=== PATIENT | male | born 2000 | race Caucasian/White ===

== ENCOUNTER 2020-06-27 19:52 | Inpatient (IN) ==
[2020-06-27 20:00] VITALS: O2SAT 99
--- NOTE | 2020-06-27 20:32 | Emergency Department Note ---
Impression & Plan Suicide attempt, Depression ED Provider Note NAME: KEYON ARELLANO AGE: 20 SEX: M : 2000 ARRIVES VIA: Walk-In INFORMANT: [Patient] ED PROVIDER(S): [Pete Cool MD] CHIEF COMPLAINT: Suicidality HISTORY OF PRESENT ILLNESS: The patient is a 20-year-old male who attempted to hang himself with a belt earlier today. The patient has been feeling depressed for months. He has a counselor/therapist. He has an appointment to see psychiatry next week. The patient is not sure why he feels so anxious and depressed. He admits to some stress from school but this is nothing new really. He is sleeping okay, he is eating okay. Today, he just felt overwhelmed. He attempted to hang himself with a belt in the doorway. He states he became lightheaded and almost lost c onsciousness but states that the attempt was unsuccessful. He contacted crisis because afterwards, he was scared. They told him to come to the hospital for evaluation. Patient has not had cough, cold or congestion. No current neck pain. He states that he has never tried to harm himself before. He does not think he needs to stay in the hospital as he no longer feels suicidal. REVIEW OF SYSTEMS: See HPI for pertinent positives and negatives. A total of ten systems were reviewed and were otherwise negative. PMHx/PSHx: See Below SOCIAL HISTORY: See Below. PHYSICAL EXAM: GENERAL: Patient is in no acute distress. HEENT: No acute trauma, normocephalic atraumatic, mucous membranes moist, no nasal congestion, no scleral icterus. NECK: No stridor, no adenopathy, no meningismus, trachea is midline. No tenderness to the trachea or hyoid bone. He does have an abrasion to the left superior trapezius muscle LUNGS: Clear to auscultation bilaterally, no wheeze, no rhonchi, breath sounds equal. HEART: Without murmurs gallops or rubs, regular rate and rhythm. ABDOMEN: Soft, nontender, bowel sounds positive, no hernias, no peritonitis. EXTREMITIES: No cyanosis or edema, full range of motion of all the joints without pain or difficulty, no signs for acute trauma. NEUROLOGIC: Oriented x 3, no acute motor or sensory deficits, no focal weakness. SKIN: No rash, no jaundice, no diaphoresis. Gastric: Cooperative, denies active suicidal ideation. Voluntary. Admits to a suicide attempt by hanging earlier. DIFFERENTIAL DIAGNOSIS: Mood disorder, infection, hypoglycemia, electrolyte abnormalities, cardiac sources, intracerebral event, toxicologic, trauma, neurologic, as well as other pathologies. EMERGENCY DEPARTMENT COURSE/PROCEDURES: MEDICAL DECISION MAKING: There is no leukocytosis or concerning anemia. There is a normal platelet count. No significant electrolyte abnormality or kidney failure. There is no concerning liver enzyme elevation. The patient appears to be in a euthyroid state. Urinalysis does not show infection. Urine tox was negative. Alcohol, Tylenol and aspirin levels were undetectable. Coronavirus testing was negative. The patient presents after trying to hang himself with a belt. He was in need of a hospital stay. He was voluntary. He was felt medically clear for a psychiatric evaluation. The patient was seen by psychiatry case management. A consult was placed to our 3 S. psychiatric unit. The patient was accepted to this floor. Patient was cooperative during his stay here in the ED. Past Med/Surg History Medical History Depression Social History Smoking Status: Never smoker Preferred Language: Bengali Communication Ability: Effective Beliefs That Will Affect Care: None Feels Safe at Home: Yes Assistive Devices: None Allergies Allergies Allergy/AdvReac Type Severity Reaction Status Date / Time lactose Allergy Diarrhea Verified 06/27/20 22:02 Home Meds Home Medications Medication Instructions Recorded Confirmed fluticasone propionate [Flonase] 1 spray INTRANASAL DAILY 06/27/20 06/27/20 Results & Data (ED) Vital Signs Vital Signs - 24 hr 06/27/20 19:54 06/27/20 21:44 Temperature 36.9 C Temperature Source Oral Pulse Rate 100 H Pulse Rate [Finger] 94 H Pulse Rhythm Regular Pulse Strength Normal Respiratory Rate 20 18 Respiratory Effort / Characteristics Non-Labored Spontaneous Non-Labored Spontaneous Respiratory Depth Normal Normal Respiratory Pattern Regular Blood Pressure 147/87 H Blood Pressure [Right Arm] 147/84 H Blood Pressure Mean 107 Blood Pressure Mean [Right Arm] 105 Blood Pressure Position Sitting Pulse Oximetry 99 99 Oxygen Delivery Method Room Air Room Air Sepsis Recent Fever Within 48 Hours No Sepsis New/Unexplained Change in Mental Status N/A Sepsis Action Taken by Nursing No Action Required Home Medications Current Medication List: was personally reviewed by me Laboratory Data Attestation: I reviewed the patient's lab results. Result diagrams: 06/27/20 20:31 06/27/20 20:31 Lab Results 06/27/20 06/27/20 06/27/20 Range/Units 20:00 20:00 20:31 WBC 7.30 (4.8-10.8) K/uL RBC 5.06 (4.7-6.1) M/uL Hgb 14.7 (14.0-18.0) g/dL Hct 43.6 (42-52) % MCV 86.2 (80-100) fL MCH 29.1 (25-34) pg MCHC 33.7 (32-36) g/dL RDW Std Deviation 42.0 (36.4-46.3) fL RDW Coeff of Devorah 13.3 (11.5-14.5) % Plt Count 301 (130-400) K/uL MPV 8.8 (7.4-10.4) fL Immature Gran % (Auto) 0.1 % Neut % (Auto) 64.4 % Lymph % (Auto) 27.7 % Branch % (Auto) 6.2 % Eos % (Auto) 1.5 % Baso % (Auto) 0.1 % Neut # (Auto) 4.70 (1.4-6.5) K/uL Lymph # (Auto) 2.02 (1.2-3.4) K/uL Branch # (Auto) 0.45 (0.11-0.59) K/uL Eos # (Auto) 0.11 (0-0.5) K/uL Baso # (Auto) 0.01 (0-0.2) K/uL Immature Gran # (Auto) 0.01 (0.00-0.02) K/uL Sodium (136-145) mmol/L Potassium (3.5-5.1) mmol/L Chloride (98-107) mmol/L Carbon Dioxide (21-32) mmol/L Anion Gap (3-11) BUN (7-18) mg/dl Creatinine (0.6-1.4) mg/dl Est Cr Clr Drug Dosing ml/min Est GFR ( Amer) Est GFR (Non-Af Amer) BUN/Creatinine Ratio (10-20) Glucose (70-99) mg/dl Calcium (8.5-10.1) mg/dl Total Bilirubin (0.2-1) mg/dl AST (15-37) U/L ALT (12-78) U/L Alkaline Phosphatase (45-117) U/L Total Protein (6.4-8.2) gm/dl Albumin (3.4-5.0) gm/dl Globulin (2.5-4.0) gm/dl Albumin/Globulin Ratio (0.9-2) TSH (0.300-4.500) uIu/ml Urine Color Yellow Urine Appearance Clear (Clear) Urine pH 7.0 (4.5-7.5) Ur Specific [place] 1.009 (1.000-1.030) Urine Protein Negative (Negative) Urine Glucose (UA) Negative (Negative) Urine Ketones Negative (Negative) Urine Blood Negative (Negative) Urine Nitrite Negative (Negative) Urine Bilirubin Negative (Negative) Urine Urobilinogen Negative (Negative) Ur Leukocyte Esterase Negative (Negative) Salicylates (2.8-20) mg/dl Urine Opiates Screen Neg (Neg) Ur Methadone, Qual Neg (Neg) Acetaminophen (10-30) ug/ml Urine Barbiturates Neg (Neg) Ur Phencyclidine (PCP) Neg (Neg) U Amphetamin/Meth Scrn Neg (Neg) MDMA (Ecstasy) Screen Neg (Neg) U Benzodiazepines Scrn Neg (Neg) Ur Cocaine Metabolite Neg (Neg) U Marijuana (THC) Screen Neg (Neg) Ethyl Alcohol mg/dL (0-3) mg/dl COVID-19 Eval Order SARS-CoV-2, RNA, NAAT (NEGATIVE) 06/27/20 06/27/20 06/27/20 Range/Units 20:31 20:31 20:31 WBC (4.8-10.8) K/uL RBC (4.7-6.1) M/uL Hgb (14.0-18.0) g/dL Hct (42-52) % MCV (80-100) fL MCH (25-34) pg MCHC (32-36) g/dL RDW Std Deviation (36.4-46.3) fL RDW Coeff of Devorah (11.5-14.5) % Plt Count (130-400) K/uL MPV (7.4-10.4) fL Immature Gran % (Auto) % Neut % (Auto) % Lymph % (Auto) % Branch % (Auto) % Eos % (Auto) % Baso % (Auto) % Neut # (Auto) (1.4-6.5) K/uL Lymph # (Auto) (1.2-3.4) K/uL Branch # (Auto) (0.11-0.59) K/uL Eos # (Auto) (0-0.5) K/uL Baso # (Auto) (0-0.2) K/uL Immature Gran # (Auto) (0.00-0.02) K/uL Sodium 139 (136-145) mmol/L Potassium 3.7 (3.5-5.1) mmol/L Chloride 109 H (98-107) mmol/L Carbon Dioxide 25 (21-32) mmol/L Anion Gap 5.0 (3-11) BUN 13 (7-18) mg/dl Creatinine 0.85 (0.6-1.4) mg/dl Est Cr Clr Drug Dosing 133.0 ml/min Est GFR ( Amer) 144.4 Est GFR (Non-Af Amer) 124.6 BUN/Creatinine Ratio 15.0 (10-20) Glucose 99 (70-99) mg/dl Calcium 9.8 (8.5-10.1) mg/dl Total Bilirubin 0.5 (0.2-1) mg/dl AST 17 (15-37) U/L ALT 29 (12-78) U/L Alkaline Phosphatase 92 (45-117) U/L Total Protein 8.6 H (6.4-8.2) gm/dl Albumin 4.4 (3.4-5.0) gm/dl Globulin 4.2 H (2.5-4.0) gm/dl Albumin/Globulin Ratio 1.1 (0.9-2) TSH 1.120 (0.300-4.500) uIu/ml Urine Color Urine Appearance (Clear) Urine pH (4.5-7.5) Ur Specific [place] (1.000-1.030) Urine Protein (Negative) Urine Glucose (UA) (Negative) Urine Ketones (Negative) Urine Blood (Negative) Urine Nitrite (Negative) Urine Bilirubin (Negative) Urine Urobilinogen (Negative) Ur Leukocyte Esterase (Negative) Salicylates < 1.7 L (2.8-20) mg/dl Urine Opiates Screen (Neg) Ur Methadone, Qual (Neg) Acetaminophen < 2 L (10-30) ug/ml Urine Barbiturates (Neg) Ur Phencyclidine (PCP) (Neg) U Amphetamin/Meth Scrn (Neg) MDMA (Ecstasy) Screen (Neg) U Benzodiazepines Scrn (Neg) Ur Cocaine Metabolite (Neg) U Marijuana (THC) Screen (Neg) Ethyl Alcohol mg/dL < 3.0 (0-3) mg/dl COVID-19 Eval Order SARS-CoV-2, RNA, NAAT (NEGATIVE) 06/27/20 06/27/20 Range/Units 20:59 20:59 WBC (4.8-10.8) K/uL RBC (4.7-6.1) M/uL Hgb (14.0-18.0) g/dL Hct (42-52) % MCV (80-100) fL MCH (25-34) pg MCHC (32-36) g/dL RDW Std Deviation (36.4-46.3) fL RDW Coeff of Devorah (11.5-14.5) % Plt Count (130-400) K/uL MPV (7.4-10.4) fL Immature Gran % (Auto) % Neut % (Auto) % Lymph % (Auto) % Branch % (Auto) % Eos % (Auto) % Baso % (Auto) % Neut # (Auto) (1.4-6.5) K/uL Lymph # (Auto) (1.2-3.4) K/uL Branch # (Auto) (0.11-0.59) K/uL Eos # (Auto) (0-0.5) K/uL Baso # (Auto) (0-0.2) K/uL Immature Gran # (Auto) (0.00-0.02) K/uL Sodium (136-145) mmol/L Potassium (3.5-5.1) mmol/L Chloride (98-107) mmol/L Carbon Dioxide (21-32) mmol/L Anion Gap (3-11) BUN (7-18) mg/dl Creatinine (0.6-1.4) mg/dl Est Cr Clr Drug Dosing ml/min Est GFR ( Amer) Est GFR (Non-Af Amer) BUN/Creatinine Ratio (10-20) Glucose (70-99) mg/dl Calcium (8.5-10.1) mg/dl Total Bilirubin (0.2-1) mg/dl AST (15-37) U/L ALT (12-78) U/L Alkaline Phosphatase (45-117) U/L Total Protein (6.4-8.2) gm/dl Albumin (3.4-5.0) gm/dl Globulin (2.5-4.0) gm/dl Albumin/Globulin Ratio (0.9-2) TSH (0.300-4.500) uIu/ml Urine Color Urine Appearance (Clear) Urine pH (4.5-7.5) Ur Specific [place] (1.000-1.030) Urine Protein (Negative) Urine Glucose (UA) (Negative) Urine Ketones (Negative) Urine Blood (Negative) Urine Nitrite (Negative) Urine Bilirubin (Negative) Urine Urobilinogen (Negative) Ur Leukocyte Esterase (Negative) Salicylates (2.8-20) mg/dl Urine Opiates Screen (Neg) Ur Methadone, Qual (Neg) Acetaminophen (10-30) ug/ml Urine Barbiturates (Neg) Ur Phencyclidine (PCP) (Neg) U Amphetamin/Meth Scrn (Neg) MDMA (Ecstasy) Screen (Neg) U Benzodiazepines Scrn (Neg) Ur Cocaine Metabolite (Neg) U Marijuana (THC) Screen (Neg) Ethyl Alcohol mg/dL (0-3) mg/dl COVID-19 Eval [facility], NAAT NEGATIVE (NEGATIVE) Discharge Plan Visit Data Chief Complaint: Mental Health Evaluation Stated Complaint: [facility] ED Provider: Pete Cool Discharge Problem: Suicide attempt, Depression Patient Disposition: Admitted As Inpatient Condition: Good Discharge Instructions Interventions: ED Discharge Assessment Last Done: 06/27/20 23:04 Discharge Problem: Depression Qualifiers: Depression Type: unspecified Qualified Code(s): F32.9 - Major depressive disorder, single episode, unspecified
[2020-06-27 20:47] LABS: Basophils # (auto) 0.01 K/uL (0-0.2); Basophils % (auto) 0.1 %; Eosinophils # (auto) 0.11 K/uL (0-0.5); Eosinophils % (auto) 1.5 %; Hematocrit (blood only) 43.6 % (42-52); Hemoglobin 14.7 g/dL (14.0-18.0); Immature Granulocytes # (auto) 0.01 K/uL (0.00-0.02); Immature Granulocytes % (auto) 0.1 %; Lymphocytes # (auto) 2.02 K/uL (1.2-3.4); Lymphocytes % (auto) 27.7 %; Mean Corpuscular Hemoglobin 29.1 pg (25-34); Mean Corpuscular Hgb Conc 33.7 g/dL (32-36); Mean Corpuscular Volume 86.2 fL (80-100); Mean Platelet Volume 8.8 fL (7.4-10.4); Monocytes # (auto) 0.45 K/uL (0.11-0.59); Monocytes % (auto) 6.2 %; Neutrophils % (auto) 64.4 %; Platelet Count 301 K/uL (130-400); RDW Coefficient of Variation 13.3 % (11.5-14.5); Red Blood Count 5.06 M/uL (4.7-6.1)
[2020-06-27 21:06] LABS: Albumin Level 4.4 gm/dl (3.4-5.0); Calcium 9.8 mg/dl (8.5-10.1); Est GFR (African American) 144.4; Est GFR (Non-African American) 124.6; Potassium 3.7 mmol/L (3.5-5.1)
[2020-06-27 21:14] LABS: Appearance Urine Clear (Clear); Bilirubin Urine Negative (Negative); Blood Urine Negative (Negative); Color Urine Yellow; Glucose Urine UA Negative (Negative); Ketones Urine Negative (Negative); Leukocyte Esterase Urine Negative (Negative); Nitrite Urine Negative (Negative); Protein Urine Negative (Negative); Specific Gravity Urine 1.009 (1.000-1.030); Urobilinogen Urine Negative (Negative)
[2020-06-27 21:17] LABS: Albumin Globulin Ratio 1.1 (0.9-2); Bilirubin,Total 0.5 mg/dl (0.2-1); Globulin 4.2 gm/dl (2.5-4.0); Thyroid Stimulating Hormone 1.12 uIu/ml (0.300-4.500); Total Protein 8.6 gm/dl (6.4-8.2)
[2020-06-27 21:25] LABS: Acetaminophen < 2 ug/ml (10-30); Salicylate < 1.7 mg/dl (2.8-20)
[2020-06-27 21:34] LABS: Amphetamines+Metham, Urine Neg (Neg); Barbiturates, Urine Neg (Neg); Benzodiazepine, Urine Neg (Neg); Cocaine, Urine Neg (Neg); MDMA (Ecstacy), Urine Neg (Neg); Methadone, Urine Neg (Neg); Opiate, Urine Neg (Neg); Phencyclidine, Urine Neg (Neg)
[2020-06-27] MEDS ORDERED: ALUMINUM/MAGNESIUM SUSP 30 ML UDC PO PRN (23:51)
[2020-06-27] MEDS ORDERED: BISMUTH SUBSALICYLATE LIQD 236 ML PO PRN (23:51)
[2020-06-27] MEDS ORDERED: hydrOXYzine HCl 25 MG TAB PO PRN ×2 (23:51)
[2020-06-27] MEDS ORDERED: MAGNESIUM HYDROXIDE SUSP 30 ML UDC PO PRN (23:51)
[2020-06-27] MEDS ORDERED: SODIUM CHLORIDE 0.65% NA SOLN 45 ML (OCEAN) PRN (23:51)
[2020-06-27] MEDS ORDERED: ACETAMINOPHEN 325 MG TAB PO PRN (23:51)
[2020-06-28] MEDS ORDERED: ESCITALOPRAM OXALATE 10 MG TAB PO ONE (10:59)
[2020-06-28] MEDS: busPIRone 5 MG TAB PO SCH ×2 (14:12→21:43)
--- NOTE | 2020-06-28 15:00 | History & Physical ---
Date of Service June 28, 2020 Impression / Recommendations Impression Pleasant 20-year-old gentleman describes a history of anxiety and depression dating back to teenage years. Previously responded positively to Lexapro and clonazepam treatment but has lapsed in medication management. Presented with impulsive self injury but reports quick resolution of suicidal ideation now describing this as a mistake and glad to be alive. Diagnosis: MDD, recurrent, severe, without psychosis; generalized anxiety disorder (1) Suicide attempt: 06/28 -Patient was admitted on a voluntary status to the behavioral health unit where his safety will be monitored on suicide precautions and he will participate in therapeutic programming as appropriate -Patient reporting resolution of suicidal impulse at time of admission (2) Depression: 06/28 -Depression sounds recurrent since teenage years -Start Lexapro 5 mg p.o. today and increased to 10 mg tomorrow for depression., Risks and benefits as well as alternatives agents were discussed. This agent was chosen based on previous good tolerability and positive treatment response to Lexapro Depression Type: unspecified Qualified Code(s): F32.9 - Major depressive disorder, single episode, unspecified (3) Generalized anxiety disorder: 06/28 -Longstanding anxiety and history of maladaptive coping strategies such as self injury injury via cutting. began to explore role of perfectionistic drives. -Start Lexapro as above -We will also start BuSpar 5 mg p.o. 3 times daily for more acute acting anxiolysis as treatment effect from SSRI may be delayed Inventory Assets Strengths: Help seeking. Intelligent Needs: Provision for safety. Pharmacotherapy Risk Factors Assessment Male: Yes : Yes Do You Have Access To A Gun?: No Health Problems: No Mental Health Diagnoses: Yes Substance Use Disorders: No Previous Attempt: No Family History of Suicide: No Previous Psychiatric Hospitalization: No Hopelessness: No Smoker: No Protective Factors Assessment : No Responsible for Young Children: No Employed: No Supportive Family: Yes Psychiatric History Identifying Data KEYON ARELLANO is a 20-year-old M who currently lives in [place], has a history of depression, anxiety, and self cutting, and was admitted on 06/27/20 22:21 on a 201 voluntary commitment for suicide attempt. Chief Complaint "I am shocked. I never thought I would do something like that ". History of Present Illness Patient was admitted through the [facility] ER yesterday after self presenting status post suicide attempt via self pain with a belt at his apartment. Per ER note, patient has been feeling depressed for several months. Has participated in some counseling. Indicated uncertain why he was feeling so depressed and anxious but noted stress from school but not new. Reported adequate sleep and appetite. Stated today he just felt overwhelmed and attempted to hang himself with a belt on the doorway, became lightheaded, nearly lost consciousness, contacted crisis services and was directed to present to the nearest ER which she did. He denied prior suicide attempts. He stated initially that he did not feel that he needed to stay in the hospital because he was no longer feeling suicidal. Medical work-up was negative and he was medically cleared for psychiatric inpatient admission. Urine tox was negative. Patient was ultimately willing for voluntary admission. On interview today, patient indicates that he is always been an anxious person. He describes a history of some perfectionism but not overt OCD. Tends to be hard onl himself. States that he felt more overwhelmed than usual in attending to his academic responsibilities. He describes a history of feeling emotionally overwhelmed at times in the past that have resulted in self injury in the form of cutting as an escape. First began cutting in 2012 but was able to stop and cutting resurfaced again in 2018 and got "pretty bad" cutting with a razor but never to the point of requiring medical intervention and denies that he is ever tried to take his life in the past. He reports he has had depression and anxiety since the age of 12. Historically emotionally can decompensate quickly. Describes recent decline in energy, crying spells, thoughts of life not being worth living. Denies changes in appetite. Denies s/o collin or psychosis. Reports previously treated with lexapro and possibly klonopin prn with good effect in [id number] however he lapsed in follow-up and ultimately ran out of medication which was not an immediate concern to him as he continued to feel well for some time. Past Psychiatric History Previous Psych History: Treated by psychiatrist, Bro Moreno in [id number]. Current Psychiatric Diagnosis: Reports prior diagnosis of MDD and OLINDA Outpatient Services: Seeing a [facility], Mandy, [facility] 2020 Previously was seen by therapist at [facility] Previous Psych Admissions: Denies Do You Have Access To A Gun?: No History of Previous Suicide Attempt: No Describe Attempts in the Past: Attempted to hang self today with a belt from door frame Past Medication Trials: Lexapro -believes was helpful and well-tolerated Clonazepam -believes was helpful on as needed basis Possible mood stabilizing agent. Unable to recall name Past Head Trauma/Neuro History History of Concussion/Seizure: No Allergies Allergy/AdvReac Type Severity Reaction Status Date / Time lactose Allergy Diarrhea Verified 06/27/20 22:02 Home Medications Home Medications Medication Instructions Recorded Confirmed Type fluticasone propionate [Flonase] 1 spray INTRANASAL DAILY 06/27/20 06/27/20 History Family History Family History of: Depression and Anxiety Alcohol History Hx of Alcohol Use Over the Past 12 Months: Yes (Socially, 1x weekly. Unable to recall the last time he was intoxicated.) AUDIT Total Score: 2 Smoking Use Smoking Status: Never smoker Substance History Hx of Prescription Med Misuse Over the Past 12 Months: No Hx of Over the Counter Med Misuse Over the Past 12 Months: No Hx of Inhalent Misuse Over the Past 12 Months: No Hx of Organic Substance Use Over the Past 12 Months: No Hx of Illegal Substances/Street Drug Use Over Past 12 Months: No Problems as a Result of Past Substance Use: None Identified Personal History Living Arrangements: Apartment Born In: [place], [place] Childhood: "good" Highest Grade Completed: College Highest 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 Marital Status: Single Number Of Children: 0 Beliefs That Will Affect Care: None Current Legal Problems: No Hx Legal Problems: No Hx Traumatic Life Events: No Psychological Trauma History Comment: Denies abuse history Patient History Medical History (Updated 06/28/20 @ 15:19 by Mathew Vail MD) Depression Environmental allergies Generalized anxiety disorder Social History Smoking Status: Never smoker Preferred Language: Divehi Communication Ability: Effective Beliefs That Will Affect Care: None Feels Safe at Home: Yes Assistive Devices: None Review of Systems Review of Systems: All systems reviewed & are unremarkable except as noted in HPI & below Neurologic: + headache(s) (improving) Physical Exam Psychiatric: Orientation: alert, oriented x 3 and cooperative Apperance: appropriately dressed, appropriately groomed and appeared stated age Eye Con tact: good eye contact Motor Behavior: steady gait and station and no abnormal motor movements Speech: normal rate/rhythm/volume of speech Affect: + depressed affect, + anxious affect and mood congruent with affect Mood: + depressed mood and + anxious mood Thought Process: goal directed thought process Thought Content: reality based without delusions Suicidal Thoughts: denies suicidal thoughts (Admits to suicide attempt via hanging but denies continued suicidal ideation following admission), denies suicidal plan and denies suicidal intent Homicidal Thoughts: denies homicidal thoughts, denies homicidal plan and denies homicidal intent Hallucinations: no auditory hallucinations, no visual hallucinations and no tactile hallucinations Cognition: recent memory grossly intact, remote memory grossly intact and language grossly intact Estimated Intelligence: average estimated intelligen ce Insight: + fair insight Judgement: + fair judgement Vital Signs (Past 24 Hours): Last Vital Signs Temp 36.8 C 06/28/20 06:45 Pulse 88 06/28/20 06:46 Resp 16 06/28/20 06:45 BP 128/87 06/28/20 06:46 Pulse Ox 99 06/27/20 21:44 Exam Statement: Physical exam performed in the ER on 06/27/2020 reviewed and accepted for medical clearance for behavioral health admission. Results & Data ([facility]) Laboratory Results Laboratory Results - last 24 hr 06/27/20 06/27/20 06/27/20 20:00 20:00 20:31 WBC 7.30 RBC 5.06 Hgb 14.7 Hct 43.6 MCV 86.2 MCH 29.1 MCHC 33.7 RDW Std Deviation 42.0 RDW Coeff of Devorah 13.3 Plt Count 301 MPV 8.8 Immature Gran % (Auto) 0.1 Neut % (Auto) 64.4 Lymph % (Auto) 27.7 Desha % (Auto) 6.2 Eos % (Auto) 1.5 Baso % (Auto) 0.1 Neut # (Auto) 4.70 Lymph # (Auto) 2.02 Desha # (Auto) 0.45 Eos # (Auto) 0.11 Baso # (Auto) 0.01 Immature Gran # (Auto) 0.01 Sodium Potassium Chloride Carbon Dioxide Anion Gap BUN Creatinine Est Cr Clr Drug Dosing Est GFR ( Amer) Est GFR (Non-Af Amer) BUN/Creatinine Ratio Glucose Calcium Total Bilirubin AST ALT Alkaline Phosphatase Total Protein Albumin Globulin Albumin/Globulin Ratio TSH Urine Color Yellow Urine Appearance Clear Urine pH 7.0 Ur Specific Milton 1.009 Urine Protein Negative Urine Glucose (UA) Negative Urine Ketones Negative Urine Blood Negative Urine Nitrite Negative Urine Bilirubin Negative Urine Urobilinogen Negative Ur Leukocyte Esterase Negative Salicylates Urine Opiates Screen Neg Ur Methadone, Qual Neg Acetaminophen Urine Barbiturates Neg Ur Phencyclidine (PCP) Neg U Amphetamin/Meth Scrn Neg MDMA (Ecstasy) Screen Neg U Benzodiazepines Scrn Neg Ur Cocaine Metabolite Neg U Marijuana (THC) Screen Neg Ethyl Alcohol mg/dL COVID-19 Eval Order SARS-CoV-2, RNA, NAAT 06/27/20 06/27/20 06/27/20 20:31 20:31 20:31 WBC RBC Hgb Hct MCV MCH MCHC RDW Std Deviation RDW Coeff of Devorah Plt Count MPV Immature Gran % (Auto) Neut % (Auto) Lymph % (Auto) Desha % (Auto) Eos % (Auto) Baso % (Auto) Neut # (Auto) Lymph # (Auto) Desha # (Auto) Eos # (Auto) Baso # (Auto) Immature Gran # (Auto) Sodium 139 Potassium 3.7 Chloride 109 H Carbon Dioxide 25 Anion Gap 5.0 BUN 13 Creatinine 0.85 Est Cr Clr Drug Dosing 133.0 Est GFR ( Amer) 144.4 Est GFR (Non-Af Amer) 124.6 BUN/Creatinine Ratio 15.0 Glucose 99 Calcium 9.8 Total Bilirubin 0.5 AST 17 ALT 29 Alkaline Phosphatase 92 Total Protein 8.6 H Albumin 4.4 Globulin 4.2 H Albumin/Globulin Ratio 1.1 TSH 1.120 Urine Color Urine Appearance Urine pH Ur Specific Milton Urine Protein Urine Glucose (UA) Urine Ketones Urine Blood Urine Nitrite Urine Bilirubin Urine Urobilinogen Ur Leukocyte Esterase Salicylates < 1.7 L Urine Opiates Screen Ur Methadone, Qual Acetaminophen < 2 L Urine Barbiturates Ur Phencyclidine (PCP) U Amphetamin/Meth Scrn MDMA (Ecstasy) Screen U Benzodiazepines Scrn Ur Cocaine Metabolite U Marijuana (THC) Screen Ethyl Alcohol mg/dL < 3.0 COVID-19 Eval Order SARS-CoV-2, RNA, NAAT 06/27/20 06/27/20 20:59 20:59 WBC RBC Hgb Hct MCV MCH MCHC RDW Std Deviation RDW Coeff of Devorah Plt Count MPV Immature Gran % (Auto) Neut % (Auto) Lymph % (Auto) Desha % (Auto) Eos % (Auto) Baso % (Auto) Neut # (Auto) Lymph # (Auto) Desha # (Auto) Eos # (Auto) Baso # (Auto) Immature Gran # (Auto) Sodium Potassium Chloride Carbon Dioxide Anion Gap BUN Creatinine Est Cr Clr Drug Dosing Est GFR ( Amer) Est GFR (Non-Af Amer) BUN/Creatinine Ratio Glucose Calcium Total Bilirubin AST ALT Alkaline Phosphatase Total Protein Albumin Globulin Albumin/Globulin Ratio TSH Urine Color Urine Appearance Urine pH Ur Specific Milton Urine Protein Urine Glucose (UA) Urine Ketones Urine Blood Urine Nitrite Urine Bilirubin Urine Urobilinogen Ur Leukocyte Esterase Salicylates Urine Opiates Screen Ur Methadone, Qual Acetaminophen Urine Barbiturates Ur Phencyclidine (PCP) U Amphetamin/Meth Scrn MDMA (Ecstasy) Screen U Benzodiazepines Scrn Ur Cocaine Metabolite U Marijuana (THC) Screen Ethyl Alcohol mg/dL COVID[facility]19 [facility] SARS-CoV-2, RNA, NAAT NEGATIVE Current Inpatient Medications Current Inpatient Medications: Current Inpatient Medications Acetaminophen (Acetaminophen 325 Mg Tab) 650 mg PO Q4H PRN PRN Reason: Headache or Minor Fever Stop: 07/27/20 23:50 Al Hydrox/Mg Hydrox/Simethicone (Aluminum/Magnesium Susp 30 Ml Udc) 30 ml PO Q4H PRN PRN Reason: GI Upset Stop: 07/27/20 23:50 Bismuth Subsalicylate (Bismuth Subsalicylate Liqd 236 Ml) 15 ml PO PRN PRN PRN Reason: Loose Stool Stop: 07/27/20 23:50 Hydroxyzine HCl (Hydroxyzine Hcl 25 Mg Tab) 50 mg PO HSZ PRN PRN Reason: Insomnia Stop: 07/27/20 23:50 Hydroxyzine HCl (Hydroxyzine Hcl 25 Mg Tab) 25 mg PO Q4H PRN PRN Reason: Anxiety Stop: 07/27/20 23:50 Magnesium Hydroxide (Magnesium Hydroxide Susp 30 Ml Udc) 30 ml PO DAILY PRN PRN Reason: Constipation Stop: 07/27/20 23:50 Sodium Chloride (Sodium Chloride 0.65% Na Soln 45 Ml ([place])) 1 - 2 sprays NA PRN PRN PRN Reason: Nasal Dryness/Congestion Stop: 07/27/20 23:50
[2020-06-29] MEDS: busPIRone 5 MG TAB PO SCH ×3 (08:53→21:53)
[2020-06-29] MEDS: FLUTICASONE PROPIONATE NA SPR 16 GM BTL SCH (08:54)
[2020-06-29] MEDS: ESCITALOPRAM OXALATE 10 MG TAB PO SCH (08:54)
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
[2020-06-29] MEDS: ACETAMINOPHEN 325 MG TAB PO SCH ×2 (12:44→17:10)
[2020-06-29] MEDS: IBUPROFEN 600 MG TAB PO SCH ×2 (14:10→21:50)
[2020-06-30] MEDS: IBUPROFEN 600 MG TAB PO SCH ×4 (02:44→21:07)
[2020-06-30] MEDS: ACETAMINOPHEN 325 MG TAB PO SCH ×4 (06:22→23:10)
--- NOTE | 2020-06-30 08:32 | Psychiatric Progress Note ---
Date of Service June 30, 2020 Impression / Recommendations Impression 20-year-old male describes a history of anxiety and depression dating back to teenage years. Previously responded positively to Lexapro and clonazepam treatment but has lapsed in medication management. Presented with impulsive self injury but reports quick resolution of suicidal ideation now describing this as a mistake and glad to be alive. He was resumed on Lexapro with addition of BuSpar to target anxiety more directly. He is engaging and participating in group and recreational programming, and will have a family meeting with parents tomorrow to discuss discharge and safety planning prior to discharge. .Diagnosis: MDD, recurrent, severe, without psychosis; generalized anxiety disorder. (1) Suicide attempt: 06/28 -Patient was admitted on a voluntary status to the behavioral health unit where his safety will be monitored on suicide precautions and he will participate in therapeutic programming as appropriate -Patient reporting resolution of suicidal impulse at time of admission 06/29 - Pt is denying continued suicidal ideation. Ongoing discussion regarding recommendations for appropriate outpatient support and safety planning - Pt has been reporting a generalized headache, which he states has been persistent but somewhat improved since he first presented to the ED. No obvious deformity observed, no cervical tenderness, some tenderness to anterior neck. Pt reported improvement with a dose of Tylenol last evening. Discussed initially plan of treating pain and inflammation with scheduled alternating Tylenol and Ibuprofen. Reviewed symptoms of significant concern (acute exacerbation of pain, numbness/tingling of upper extremities, dizziness, vision changes, etc.), and encouraged patient to come to staff with any acute concerns. 06/30 -Family meeting scheduled with parents for tomorrow. Continue to work on safety plan. (2) Depression: 06/28 -Depression sounds recurrent since teenage years -Start Lexapro 5 mg p.o. today and increased to 10 mg tomorrow for depression., Risks and benefits as well as alternatives agents were discussed. This agent was chosen based on previous good tolerability and positive treatment response to Lexapro 06/29 - Continue current dosage of Lexapro 10mg. Pt believes he had previously been prescribed 20mg, but wishes to continue his current dose for an extended period - with likely evaluation for need for adjustments completed with his outpatient provider - Pt encouraged to continue participation with regard to group and recreational programming - Was encouraged to consider scheduling a family meeting with parents to discuss discharge and safety planning 06/30 -Continue current medications, referring for psychiatric care in [place], [place] (will see [facility] in the interim). (3) Generalized anxiety disorder: 06/28 -Longstanding anxiety and history of maladaptive coping strategies such as self injury injury via cutting. Began to explore role of perfectionistic drives. -Start Lexapro as above -We will also start BuSpar 5 mg p.o. 3 times daily for more acute acting anxiolysis as treatment effect from SSRI may be delayed. 06/29 - Pt reports initial mildly favorable response to additional of buspirone to his medication regimen. Pt reports feeling as though he would benefit from an increased dose, so will titrate to 10mg TID starting with this afternoon's dose. - Continue current dosage of Lexapro 10mg - Encourage participation in group and recreational programming 06/30 -Continue current medications, work on healthy coping skills and behavioral techniques for managing anxiety. Inventory Assets Strengths: Help seeking. Intelligent Needs: Provision for safety. Pharmacotherapy Risk Factors Assessment Male: Yes : Yes Do You Have Access To A Gun?: No Health Problems: No Mental Health Diagnoses: Yes Substance Use Disorders: No Previous Attempt: No Family History of Suicide: No Previous Psychiatric Hospitalization: No Hopelessness: No Smoker: No Protective Factors Assessment : No Responsible for Young Children: No Employed: No Supportive Family: Yes Interval History Identifying Information KEYON ARELLANO is a 20-year-old M who currently lives in [place], [place] with a friend, has a history of depression, anxiety, and self cutting, and was admitted on 06/27/20 22:21 on a 201 voluntary commitment for suicide attempt. Chief Complaint "Uh, I think I've been doing good". Review of Systems Sleep Information Total Hours of Sleep: 6.5 Sleep Comments: pt on q-15 minute checks Meal Information Percent Meal Consumed - Breakfast: 100 Percent Meal Consumed - Lunch: 100 Percent Meal Consumed - Dinner: 100 Subjective Subjective Patient was seen & assessed and interval progress reviewed with nursing and social work. Staff report he is attending groups but with minimal participation, rated mood 8-8.5/10, and is eating well. He has a family meeting with his mother and the social work job titles tomorrow. On my assessment, he reports symptoms are improving, especially anxiety, as he feels less panicky and tense, less tremulous and more relaxed. Still feels "a little out of it, not able to focus, racing thoughts, and tired." Has felt "foggy" for the past couple months. Sleep is fair, difficulty falling asleep, but once he falls asleep, he sleeps through the night. Feels "worried, alone with my thoughts" when trying to fall asleep. Sleep latency is 15 min - 1.5 hours. He has talked about sleep hygiene with his therapist, and has been working on getting a set schedule, usually showers prior to bed to help relax him, but is still using his phone just before bed. He denies SI and is working on his safety plan. He is worried about school and what he will tell his friends about "why I disappeared," as well as how he will deal with stressors when he's discharged. Reviewed his thoughts of how much to tell friends who ask where he's been. Discussed his family meeting with parents tomorrow, is anxious because he doens't know "what to expect." Spent some time discussing this, goals of meeting. States they talk daily, parents are very supportive, but he's never been very open about his struggles. Processed his underlying fear of burdening others if he discloses his problems. He asked multiple questions about medications, including effects of alcohol when on medication. Physical Exam Psychiatric Orientation: alert and cooperative Apperance: appropriately dressed, appropriately groomed and appeared stated age Eye Contact: good eye contact Motor Behavior: steady gait and station and + psychomotor agitation (bouncing leg up and down throughout interview) Speech: normal rate/rhythm/volume of speech Affect: + anxious affect Mood: + anxious mood Thought Process: goal directed thought process Thought Content: reality based without delusions Suicidal Thoughts: denies suicidal thoughts Homicidal Thoughts: denies homicidal thoughts Hallucinations: no auditory hallucinations Cognition: recent memory grossly intact, attention grossly intact and language grossly intact Estimated Intelligence: consistent with education level Insight: good insight Judgement: good judgement Vital Signs (Past 24 Hours) Last Vital Signs Temp 36.6 C 06/30/20 06:45 Pulse 89 06/30/20 06:46 Resp 16 06/30/20 06:45 BP 105/69 06/30/20 06:46 Pulse Ox 99 06/27/20 21:44 Results & Data ([facility]) Current Inpatient Medications Current Inpatient Medications: Current Inpatient Medications Acetaminophen (Acetaminophen 325 Mg Tab) 650 mg PO Q6H BERNARDO Stop: 07/29/20 10:59 Last Admin: 06/30/20 06:22 Dose: Not Given Documented by: Al Hydrox/Mg Hydrox/Simethicone (Aluminum/Magnesium Susp 30 Ml Udc) 30 ml PO Q4H PRN PRN Reason: GI Upset Stop: 07/27/20 23:50 Bismuth Subsalicylate (Bismuth Subsalicylate Liqd 236 Ml) 15 ml PO PRN PRN PRN Reason: Loose Stool Stop: 07/27/20 23:50 Buspirone HCl (Buspirone 5 Mg Tab) 10 mg PO TID BERNARDO Stop: 07/29/20 13:59 Last Admin: 06/29/20 21:53 Dose: 10 mg Documented by: Escitalopram Oxalate (Escitalopram Oxalate 10 Mg Tab) 10 mg PO QAM BERNARDO Stop: 07/29/20 08:59 Last Admin: 06/29/20 08:54 Dose: 10 mg Documented by: Fluticasone Propionate (Fluticasone Propionate Na Spr 16 Gm Btl) 1 sprays NA DAILY BERNARDO Stop: 07/29/20 08:59 Last Admin: 06/29/20 08:54 Dose: 1 sprays Documented by: Hydroxyzine HCl (Hydroxyzine Hcl 25 Mg Tab) 50 mg PO HSZ PRN PRN Reason: Insomnia Stop: 07/27/20 23:50 Hydroxyzine HCl (Hydroxyzine Hcl 25 Mg Tab) 25 mg PO Q4H PRN PRN Reason: Anxiety Stop: 07/27/20 23:50 Ibuprofen (Ibuprofen 600 Mg Tab) 600 mg PO Q6H BERNARDO Stop: 07/29/20 13:59 Last Admin: 06/30/20 02:44 Dose: Not Given Documented by: Magnesium Hydroxide (Magnesium Hydroxide Susp 30 Ml Udc) 30 ml PO DAILY PRN PRN Reason: Constipation Stop: 07/27/20 23:50 Sodium Chloride (Sodium Chloride 0.65% Na Soln 45 Ml ([place])) 1 - 2 sprays NA PRN PRN PRN Reason: Nasal Dryness/Congestion Stop: 07/27/20 23:50 Mental Health & Subst Abuse Tx Psychiatrist Date of Appointment with Psychiatrist: 06/30/20 Time of Appointment with Psychiatrist: 2:30 Therapist [facility] Date of Therapist Appointment: 07/02/20 Time of Therapist Appointment: 3:00 pm Therapy Appointment Comment: [id number], [place] Child Care Assistant Name of Child Care Assistant: [employer] Phone Number for Child Care Assistant: [phone] Post Discharge Appointments Primary Care Physician Name Of Family Doctor: [facility] Primary Care Provider Appointment Comment: Please follow up as needed Contact Information Discharge Discharge Address: [address] [place] [address] (1) Depression Depression Type: unspecified Qualified Code(s): F32.9 - Major depressive disorder, single episode, unspecified
[2020-06-30] MEDS: busPIRone 5 MG TAB PO SCH ×3 (08:59→21:09)
[2020-06-30] MEDS: ESCITALOPRAM OXALATE 10 MG TAB PO SCH (09:00)
[2020-06-30] MEDS: FLUTICASONE PROPIONATE NA SPR 16 GM BTL SCH (09:00)
[2020-07-01] MEDS: IBUPROFEN 600 MG TAB PO SCH ×2 (01:48→09:32)
[2020-07-01] MEDS: ACETAMINOPHEN 325 MG TAB PO SCH (05:12)
--- NOTE | 2020-07-01 09:07 | Psychiatric Progress Note ---
Date of Service July 01, 2020 Impression / Recommendations Impression 20-year-old male describes a history of anxiety and depression dating back to teenage years. Previously responded positively to Lexapro and clonazepam treatment but has lapsed in medication management. Presented with impulsive self injury but reports quick resolution of suicidal ideation now describing this as a mistake and glad to be alive. He was resumed on Lexapro with addition of BuSpar to target anxiety more directly. He is engaging and participating in group and recreational programming, and will have a family meeting with parents tomorrow to discuss discharge and safety planning prior to discharge. .Diagnosis: MDD, recurrent, severe, without psychosis; generalized anxiety disorder. (1) Suicide attempt: 06/28 -Patient was admitted on a voluntary status to the behavioral health unit where his safety will be monitored on suicide precautions and he will participate in therapeutic programming as appropriate -Patient reporting resolution of suicidal impulse at time of admission 06/29 - Pt is denying continued suicidal ideation. Ongoing discussion regarding recommendations for appropriate outpatient support and safety planning - Pt has been reporting a generalized headache, which he states has been persistent but somewhat improved since he first presented to the ED. No obvious deformity observed, no cervical tenderness, some tenderness to anterior neck. Pt reported improvement with a dose of Tylenol last evening. Discussed initially plan of treating pain and inflammation with scheduled alternating Tylenol and Ibuprofen. Reviewed symptoms of significant concern (acute exacerbation of pain, numbness/tingling of upper extremities, dizziness, vision changes, etc.), and encouraged patient to come to staff with any acute concerns. 06/30 -Family meeting scheduled with parents for tomorrow. Continue to work on safety plan. 07/01 - Denies SI, reports increased hopefulness - Family meeting with parents this morning, they are supportive - Safety plan completed during group yesterday (2) Depression: 06/28 -Depression sounds recurrent since teenage years -Start Lexapro 5 mg p.o. today and increased to 10 mg tomorrow for depression., Risks and benefits as well as alternatives agents were discussed. This agent was chosen based on previous good tolerability and positive treatment response to Lexapro 06/29 - Continue current dosage of Lexapro 10mg. Pt believes he had previously been prescribed 20mg, but wishes to continue his current dose for an extended period - with likely evaluation for need for adjustments completed with his outpatient provider - Pt encouraged to continue participation with regard to group and recreational programming - Was encouraged to consider scheduling a family meeting with parents to discuss discharge and safety planning 06/30 -Continue current medications, referring for psychiatric care in [place], [place] (will see [facility] in the interim). 07/01 - Continue current medication regimen - pt does report some increased daytime fatigue. Discussed recommendation for ongoing observation and communication with outpatient providers should this persist. - Pt had a family meeting with parents this morning, parents are supportive and willing to assist with aftercare arrangements for when patient returns home - Anticipate discharge home tomorrow, so patient is able to attend his therapy appointment (3) Generalized anxiety disorder: 06/28 -Longstanding anxiety and history of maladaptive coping strategies such as self injury injury via cutting. Began to explore role of perfectionistic drives. -Start Lexapro as above -We will also start BuSpar 5 mg p.o. 3 times daily for more acute acting anxiolysis as treatment effect from SSRI may be delayed. 06/29 - Pt reports initial mildly favorable response to additional of buspirone to his medication regimen. Pt reports feeling as though he would benefit from an increased dose, so will titrate to 10mg TID starting with this afternoon's dose. - Continue current dosage of Lexapro 10mg - Encourage participation in group and recreational programming 06/30 - 07/01 -Continue current medications, work on healthy coping skills and behavioral techniques for managing anxiety. Inventory Assets Strengths: Help seeking. Intelligent Needs: Provision for safety. Pharmacotherapy Risk Factors Assessment Male: Yes : Yes Do You Have Access To A Gun?: No Health Problems: No Mental Health Diagnoses: Yes Substance Use Disorders: No Previous Attempt: No Family History of Suicide: No Previous Psychiatric Hospitalization: No Hopelessness: No Smoker: No Protective Factors Assessment : No Responsible for Young Children: No Employed: No Supportive Family: Yes Interval History Identifying Information KEYON ARELLANO is a 20-year-old M who currently lives in [place], [place] with a friend, has a history of depression, anxiety, and self cutting, and was admitted on 06/27/20 22:21 on a 201 voluntary commitment for suicide attempt. Chief Complaint "I really do feel a lot better." Review of Systems Notes Constitutional: reports some increased daytime fatigue Cardiovascular: denied Respiratory: denied Gastrointestinal: denied Neurological: denied Psychiatric: denies symptoms other than stated above Total of at least 10 systems reviewed, pertinent positives as above and in HPI. Sleep Information Total Hours of Sleep: 6 Sleep Comments: pt on q-15 minute checks Meal Information Percent Meal Consumed - Breakfast: 100 Percent Meal Consumed - Lunch: 100 Percent Meal Consumed - Dinner: 90 Subjective Subjective Patient was seen & assessed and interval progress reviewed with treatment team. Staff report the patient has been participating in group programming, has been supportive of peers. Pt rated his mood a 9/10 and "good" last evening. He had a family meeting via phone with his parents this morning. Pt was seen today to assess progress since admission. Pt states "I really do feel a lot better." He states groups have been beneficial and he is appreciative of the support he is receiving from his peers. Pt reports his family meeting with parents this morning went well, and he felt reassured to be able to open up to them about his recent struggles. Pt admits "I feel really far away from the person I was a few days ago when I came in here." He states that he has been particularly interested in groups on challenging negative thinking and feels this will be helpful for him moving forward. Pt reports feeling content with his current medication regimen, but does admit to some increased daytime fatigue. He states he is uncertain if this is related to his medications or another cause. Pt reports significant improvement in headache and neck pain after several doses of scheduled Tylenol/Ibuprofen - so will change order back to just as needed. When discussing discharge, patient admits he is "nervous, but also kind of excited." He states adjusting to his previous schedule may be challenging, but he is hoping to continue to utilize positive self-care and coping skills to keep anxiety low. Pt states his new focus is on "balance", hoping to spend more appropriate effort in prioritizing self-care as much as he prioritizes school. Pt is aware of an outpatient therapy appointment scheduled for tomorrow aftern oon. He is hopeful for discharge tomorrow morning, with parents confirming feeling comfortable with this plan. Pt denied other needs or concerns today. Physical Exam Psychiatric Orientation: alert, oriented x 3 and cooperative Apperance: appropriately dressed, appropriately groomed and appeared stated age Eye Contact: good eye contact Motor Behavior: steady gait and station and no abnormal motor movements Speech: normal rate/rhythm/volume of speech Affect: + anxious affect and mood congruent with affect Mood: + anxious mood; no depressed mood ("a lot better") Thought Process: goal directed thought process, clear/coherent thought process and thought association intact Thought Content: reality based without delusions; no hopelessness and no worthlessness Suicidal Thoughts: denies suicidal thoughts and denies suicidal intent Homicidal Thoughts: denies homicidal thoughts Hallucinations: no auditory hallucinations and no visual hallucinations Cognition: recent memory grossly intact, attention grossly intact and language grossly intact Estimated Intelligence: consistent with education level Insight: good insight Judgement: good judgement Vital Signs (Past 24 Hours) Last Vital Signs Temp 36.6 C 07/01/20 06:41 Pulse 83 07/01/20 06:42 Resp 16 07/01/20 06:41 BP 110/70 07/01/20 06:42 Pulse Ox 99 06/27/20 21:44 Results & Data ([facility]) Current Inpatient Medications Current Inpatient Medications: Current Inpatient Medications Acetaminophen (Acetaminophen 325 Mg Tab) 650 mg PO Q6H BERNARDO Stop: 07/29/20 10:59 Last Admin: 07/01/20 05:12 Dose: Not Given Documented by: Al Hydrox/Mg Hydrox/Simethicone (Aluminum/Magnesium Susp 30 Ml Udc) 30 ml PO Q4H PRN PRN Reason: GI Upset Stop: 07/27/20 23:50 Bismuth Subsalicylate (Bismuth Subsalicylate Liqd 236 Ml) 15 ml PO PRN PRN PRN Reason: Loose Stool Stop: 07/27/20 23:50 Buspirone HCl (Buspirone 5 Mg Tab) 10 mg PO TID BERNARDO Stop: 07/29/20 13:59 Last Admin: 06/30/20 21:09 Dose: 10 mg Documented by: Escitalopram Oxalate (Escitalopram Oxalate 10 Mg Tab) 10 mg PO QAM BERNARDO Stop: 07/29/20 08:59 Last Admin: 06/30/20 09:00 Dose: 10 mg Documented by: Fluticasone Propionate (Fluticasone Propionate Na Spr 16 Gm Btl) 1 sprays NA DAILY BERNARDO Stop: 07/29/20 08:59 Last Admin: 06/30/20 09:00 Dose: 1 sprays Documented by: Hydroxyzine HCl (Hydroxyzine Hcl 25 Mg Tab) 50 mg PO HSZ PRN PRN Reason: Insomnia Stop: 07/27/20 23:50 Hydroxyzine HCl (Hydroxyzine Hcl 25 Mg Tab) 25 mg PO Q4H PRN PRN Reason: Anxiety Stop: 07/27/20 23:50 Ibuprofen (Ibuprofen 600 Mg Tab) 600 mg PO Q6H BERNARDO Stop: 07/29/20 13:59 Last Admin: 07/01/20 01:48 Dose: Not Given Documented by: Magnesium Hydroxide (Magnesium Hydroxide Susp 30 Ml Udc) 30 ml PO DAILY PRN PRN Reason: Constipation Stop: 07/27/20 23:50 Sodium Chloride (Sodium Chloride 0.65% Na Soln 45 Ml ([place])) 1 - 2 sprays NA PRN PRN PRN Reason: Nasal Dryness/Congestion Stop: 07/27/20 23:50 Mental Health & Subst Abuse Tx Psychiatrist Name of Psychiatrist: [facility] Date of Appointment with Psychiatrist: 07/07/20 Time of Appointment with Psychiatrist: 2:30 p.m. Psychiatric Appointment Comment: Instructions will be in your email Therapist Name of Therapist: [facility] Octavio Galvan Therapist's Date of Therapist Appointment: 07/02/20 Time of Therapist Appointment: 3:00 pm Therapy Appointment Comment: [id number], [place] [employer] Developer [employer]er Name of Ux Developer Designer: Marilyn Arthur Phone Number for Ux Developer Designer: [phone] Date of Appointment with Ux Developer Designer: 07/07/20 Time of Appointment with Ux Developer Designer: 1:00 p.m. Case Management Appointment Comment: Will reach out to you Post Discharge Appointments Primary Care Physician Name Of Family Doctor: [facility] Primary Care Provider Appointment Comment: Please follow up as needed Other #1: Name of Aftercare Appointment: Option for psychiatry: [facility] Phone Number of Aftercare Appointment: [phone] Aftercare Appointment Comment: [address] [place] [address] #2: Name of Aftercare Appointment: Option for psychiatry: [facility] Phone Number of Aftercare Appointment: [phone] Aftercare Appointment Comment: [address], [place] #3: Name of Aftercare Appointment: Option for psychiatry: [facility] Phone Number of Aftercare Appointment: [phone] Aftercare Appointment Comment: [address] [facility], [place] [address] Contact Information Discharge Discharge [address]: [address] [place] [address] (1) Depression Depression Type: unspecified Qualified Code(s): F32.9 - Major depressive disorder, single episode, unspecified
[2020-07-01] MEDS: ESCITALOPRAM OXALATE 10 MG TAB PO SCH (09:30)
[2020-07-01] MEDS: FLUTICASONE PROPIONATE NA SPR 16 GM BTL SCH (09:30)
[2020-07-01] MEDS: busPIRone 5 MG TAB PO SCH ×3 (09:30→21:40)
[2020-07-01] MEDS ORDERED: IBUPROFEN 600 MG TAB PO PRN (12:11)
[2020-07-01] MEDS ORDERED: ACETAMINOPHEN 325 MG TAB PO PRN (12:11)
[2020-07-02 06:48] VITALS: TEMP 98.1
--- NOTE | 2020-07-02 08:44 | Discharge Summary ---
Date of Service July 02, 2020 History of Present Illness Patient was admitted through the [facility] yesterday after self presenting status post suicide attempt via self pain with a belt at his apartment. Per ER note, patient has been feeling depressed for several months. Has participated in some counseling. Indicated uncertain why he was feeling so depressed and anxious but noted stress from school but not new. Reported adequate sleep and appetite. Stated today he just felt overwhelmed and attempted to hang himself with a belt on the doorway, became lightheaded, nearly lost consciousness, contacted crisis services and was directed to present to the nearest ER which she did. He denied prior suicide attempts. He stated initially that he did not feel that he needed to stay in the hospital because he was no longer feeling suicidal. Medical work-up was negative and he was medically cleared for psychiatric inpatient admission. Urine tox was negative. Patient was ultimately willing for voluntary admission. On interview today, patient indicates that he is always been an anxious person. He describes a history of some perfectionism but not overt OCD. Tends to be hard onl himself. States that he felt more overwhelmed than usual in attending to his academic responsibilities. He describes a history of feeling emotionally overwhelmed at times in the past that have resulted in self injury in the form of cutting as an escape. First began cutting in 2012 but was able to stop and cutting resurfaced again in 2018 and got "pretty bad" cutting with a razor but never to the point of requiring medical intervention and denies that he is ever tried to take his life in the past. He reports he has had depression and anxiety since the age of 12. Historically emotionally can decompensate quickly. Describes recent decline in energy, crying spells, thoughts of life not being worth living. Denies changes in appetite. Denies s/o collin or psychosis. Reports previously treated with lexapro and possibly klonopin prn with good effect in [id number] however he lapsed in follow-up and ultimately ran out of medication which was not an immediate concern to him as he continued to feel well for some time. Physical Exam Vital Signs (Past 24 Hours) Last Vital Signs Temp 36.7 C 07/02/20 06:46 Pulse 118 H 07/02/20 06:46 Resp 16 07/02/20 06:46 BP 113/72 07/02/20 06:46 Pulse Ox 99 06/27/20 21:44 Principal Diagnosis MDD, recurrent, severe, without psychosis Generalized anxiety disorder Psychiatric Data The patient was hospitalized for 5 days. He tolerated escitalopram and buspirone well, and doses were titrated. He utilized hydroxyzine for sleep and found it beneficial, and requested a prescription at discharge. He attended and participated in groups and therapy, was engaged and interactive with staff and his peers, from and reported benefiting programming on the unit. He was able to process his stressors and work on healthy coping skills, developed a discharge safety plan, and had a family meeting with his parents and the social human services assistants on 07/01/2020. His parents were supportive, and they discussed the patient's difficulties opening up to others about his emotions. They discussed his low self-esteem and excessively high expectations for himself, and over extending himself in school activities/obligations. His parents were involved in his discharge safety plan, coming to pick him up on the day of discharge and staying with him for a day. He also made a plan for friends to visit for a couple of days after his parents left for additional support. He processed his anxiety about telling his friends about his mental health issues, and worked on healthy ways to cope with the stress of school. Care was coordinated with his outpatient clinicians, and a bridge appointment scheduled at [facility] until he returns home to [place], [place] where he will have ongoing psychiatric care over the holiday break. Day of Discharge Assessment Patient reports his mood is "pretty good, more excited than anxious." He rates it an 8.5/10. He denies thoughts of harming himself or anyone else, and reports good response to medications and therapy on the unit. He states hydroxyzine was helpful for sleep and would like a prescription at discharge. He is able to review his discharge safety plan, is looking forward to spending today with his parents in the next couple of days with friends who are coming to visit. He is thought about how he would like to inform his friend group about his struggles with depression and anxiety and the reason for his hospitalization, and reports having good supports. He denies any safety concerns with discharge. Transition of Care Transition Of Care Record: was reviewed with the patient Advance Directives Advance Directives Information Provided: Yes Advance Directives: No Mental Health Advance Directive: No Advance Directives on File: No Living Will: No Power of Twine Reeling Machine Operator: No Advance Directives Reason:: Declines as Mental Health Visit. Risk Factors Assessment Respecters were mitigated by admission to the inpatient unit, use of medications to target mood and anxiety symptoms, education about his diagnoses and the recommended treatment, involvement in groups and therapy, and on healthy coping skills and a discharge safety plan, family meeting with his parents, extension course coordinator rdination of care with outpatient clinicians, and referral for psychiatric care in his hometown for over the break. He has demonstrated improvement in mood and anxiety symptoms, is consistently denying thoughts of harming himself or others, is performing ADLs independently, taking medications as prescribed, and stating readiness for discharge. He is no longer at acute risk of harm to himself, and can be managed as an outpatient at this time. He does not have risk factors for harm to others. Male: Yes : Yes Do You Have Access To A Gun?: No Health Problems: No Mental Health Diagnoses: Yes Substance Use Disorders: No Previous Attempt: No Family History of Suicide: No Previous Psychiatric Hospitalization: No Hopelessness: No Smoker: No Protective Factors Assessment : No Responsible for Young Children: No Employed: No Stable Relationships: Yes Supportive Family: Yes Good Rapport with Provider: Yes Tobacco Cessation at Discharge Tobacco Cessation Medication Prescribed at Discharge: Not Applicable/Non-Smoker Total Time Total Time Spent: Greater Than 30 Minutes Total Time Includes: Examination of the patient, Discharge Planning and Medication Reconciliation Discharge Data Lab Results 06/27/20 06/27/20 06/27/20 20:00 20:00 20:31 WBC 7.30 RBC 5.06 Hgb 14.7 Hct 43.6 MCV 86.2 MCH 29.1 MCHC 33.7 RDW Std Deviation 42.0 RDW Coeff of Devorah 13.3 Plt Count 301 MPV 8.8 Immature Gran % (Auto) 0.1 Neut % (Auto) 64.4 Lymph % (Auto) 27.7 Wilson % (Auto) 6.2 Eos % (Auto) 1.5 Baso % (Auto) 0.1 Neut # (Auto) 4.70 Lymph # (Auto) 2.02 Wilson # (Auto) 0.45 Eos # (Auto) 0.11 Baso # (Auto) 0.01 Immature Gran # (Auto) 0.01 Sodium Potassium Chloride Carbon Dioxide Anion Gap BUN Creatinine Est Cr Clr Drug Dosing Est GFR ( Amer) Est GFR (Non-Af Amer) BUN/Creatinine Ratio Glucose Calcium Total Bilirubin AST ALT Alkaline Phosphatase Total Protein Albumin Globulin Albumin/Globulin Ratio TSH Urine Color Yellow Urine Appearance Clear Urine pH 7.0 Ur Specific [place] 1.009 Urine Protein Negative Urine Glucose (UA) Negative Urine Ketones Negative Urine Blood Negative Urine Nitrite Negative Urine Bilirubin Negative Urine Urobilinogen Negative Ur Leukocyte Esterase Negative Salicylates Urine Opiates Screen Neg Ur Methadone, Qual Neg Acetaminophen Urine Barbiturates Neg Ur Phencyclidine (PCP) Neg U Amphetamin/Meth Scrn Neg MDMA (Ecstasy) Screen Neg U Benzodiazepines Scrn Neg Ur Cocaine Metabolite Neg U Marijuana (THC) Screen Neg Ethyl Alcohol mg/dL COVID-19 Eval Order SARS-CoV-2, RNA, NAAT 06/27/20 06/27/20 06/27/20 20:31 20:31 20:31 WBC RBC Hgb Hct MCV MCH MCHC RDW Std Deviation RDW Coeff of Devorah Plt Count MPV Immature Gran % (Auto) Neut % (Auto) Lymph % (Auto) Wilson % (Auto) Eos % (Auto) Baso % (Auto) Neut # (Auto) Lymph # (Auto) Wilson # (Auto) Eos # (Auto) Baso # (Auto) Immature Gran # (Auto) Sodium 139 Potassium 3.7 Chloride 109 H Carbon Dioxide 25 Anion Gap 5.0 BUN 13 Creatinine 0.85 Est Cr Clr Drug Dosing 133.0 Est GFR ( Amer) 144.4 Est GFR (Non-Af Amer) 124.6 BUN/Creatinine Ratio 15.0 Glucose 99 Calcium 9.8 Total Bilirubin 0.5 AST 17 ALT 29 Alkaline Phosphatase 92 Total Protein 8.6 H Albumin 4.4 Globulin 4.2 H Albumin/Globulin Ratio 1.1 TSH 1.120 Urine Color Urine Appearance Urine pH Ur Specific [place] Urine Protein Urine Glucose (UA) Urine Ketones Urine Blood Urine Nitrite Urine Bilirubin Urine Urobilinogen Ur Leukocyte Esterase Salicylates < 1.7 L Urine Opiates Screen Ur Methadone, Qual Acetaminophen < 2 L Urine Barbiturates Ur Phencyclidine (PCP) U Amphetamin/Meth Scrn MDMA (Ecstasy) Screen U Benzodiazepines Scrn Ur Cocaine Metabolite U Marijuana (THC) Screen Ethyl Alcohol mg/dL < 3.0 COVID-19 Eval Order SARS-CoV-2, RNA, NAAT 06/27/20 06/27/20 20:59 20:59 WBC RBC Hgb Hct MCV MCH MCHC RDW Std Deviation RDW Coeff of Devorah Plt Count MPV Immature Gran % (Auto) Neut % (Auto) Lymph % (Auto) Wilson % (Auto) Eos % (Auto) Baso % (Auto) Neut # (Auto) Lymph # (Auto) Wilson # (Auto) Eos # (Auto) Baso # (Auto) Immature Gran # (Auto) Sodium Potassium Chloride Carbon Dioxide Anion Gap BUN Creatinine Est Cr Clr Drug Dosing Est GFR ( Amer) Est GFR (Non-Af Amer) BUN/Creatinine Ratio Glucose Calcium Total Bilirubin AST ALT Alkaline Phosphatase Total Protein Albumin Globulin Albumin/Globulin Ratio TSH Urine Color Urine Appearance Urine pH Ur Specific [place] Urine Protein Urine Glucose (UA) Urine Ketones Urine Blood Urine Nitrite Urine Bilirubin Urine Urobilinogen Ur Leukocyte Esterase Salicylates Urine Opiates Screen Ur Methadone, Qual Acetaminophen Urine Barbiturates Ur Phencyclidine (PCP) U Amphetamin/Meth Scrn MDMA (Ecstasy) Screen U Benzodiazepines Scrn Ur Cocaine Metabolite U Marijuana (THC) Screen Ethyl Alcohol mg/dL COVID-19 Eval Order Covid19 IDNow [facility] SARS-CoV-2, RNA, NAAT NEGATIVE Hospital Course (1) Suicide attempt: 06/28 -Patient was admitted on a voluntary status to the behavioral health unit where his safety will be monitored on suicide precautions and he will participate in therapeutic programming as appropriate -Patient reporting resolution of suicidal impulse at time of admission 06/29 - Pt is denying continued suicidal ideation. Ongoing discussion regarding recommendations for appropriate outpatient support and safety planning - Pt has been reporting a generalized headache, which he states has been persistent but somewhat improved since he first presented to the ED. No obvious deformity observed, no cervical tenderness, some tenderness to anterior neck. Pt reported improvement with a dose of Tylenol last evening. Discussed initially plan of treating pain and inflammation with scheduled alternating Tylenol and Ibuprofen. Reviewed symptoms of significant concern (acute exacerbation of pain, numbness/tingling of upper extremities, dizziness, vision changes, etc.), and encouraged patient to come to staff with any acute concerns. 06/30 -Family meeting scheduled with parents for tomorrow. Continue to work on safety plan. 07/01 - Denies SI, reports increased hopefulness - Family meeting with parents this morning, they are supportive - Safety plan completed during group yesterday 07/02 -Patient is able to review his discharge safety plan. (2) Depression: 06/28 -Depression sounds recurrent since teenage years -Start Lexapro 5 mg p.o. today and increased to 10 mg tomorrow for depression., Risks and benefits as well as alternatives agents were discussed. This agent was chosen based on previous good tolerability and positive treatment response to Lexapro 06/29 - Continue current dosage of Lexapro 10mg. Pt believes he had previously been prescribed 20mg, but wishes to continue his current dose for an extended period - with likely evaluation for need for adjustments completed with his outpatient provider - Pt encouraged to continue participation with regard to group and recreational programming - Was encouraged to consider scheduling a family meeting with parents to discuss discharge and safety planning 06/30 -Continue current medications, referring for psychiatric care in [place], [place] (will see [facility] in the interim). 07/01 - Continue current medication regimen - pt does report some increased daytime fatigue. Discussed recommendation for ongoing observation and communication with outpatient providers should this persist. - Pt had a family meeting with parents this morning, parents are supportive and willing to assist with aftercare arrangements for when patient returns home - Anticipate discharge home tomorrow, so patient is able to attend his therapy appointment 07/02 -Discharged today to parents care. They will be staying with him for the next day, and then friends are coming to visit and stay with him over the weekend. -Follow-up at [facility] until the end of the semester, then transition care to a psychiatrist in his hometown. [facility] at [facility]. (3) Generalized anxiety disorder: 06/28 -Longstanding anxiety and history of maladaptive coping strategies such as se lf injury injury via cutting. Began to explore role of perfectionistic drives. -Start Lexapro as above -We will also start BuSpar 5 mg p.o. 3 times daily for more acute acting anxiolysis as treatment effect from SSRI may be delayed. 06/29 - Pt reports initial mildly favorable response to additional of buspirone to his medication regimen. Pt reports feeling as though he would benefit from an i ncreased dose, so will titrate to 10mg TID starting with this afternoon's dose. - Continue current dosage of Lexapro 10mg - Encourage participation in group and recreational programming 06/30 - 07/01 -Continue current medications, work on healthy coping skills and behavioral techniques for managing anxiety. Mental Health & Subst Abuse Tx Psychiatrist Name of Psychiatrist: [facility] Date of Appointment with Psychiatrist: 07/07/20 Time of Appointment with Psychiatrist: 2:30 p.m. Psychiatric Appointment Comment: Instructions will be in your email Therapist Name of Therapist: [facility] Date of Therapist Appointment: 07/02/20 Time of Therapist Appointment: 3:00 pm Therapy Appointment Comment: [address], [place] Claim Representative Name of Claim Representative: Student Jennifer and Neto Purdy Phone Number for Claim Representative: [phone] Date of Appointment with Claim Representative: 07/07/20 Time of Appointment with Claim Representative: 1:00 p.m. Case Management Appointment Comment: Will reach out to you Post Discharge Appointments Primary Care Physician Name Of Family Doctor: [facility] Primary Care Provider Appointment Comment: Please follow up as needed Smoking Cessation Counseling Tobacco Cessation Medication Prescribed at Discharge: Not Applicable/Non-Smoker Contact Information Discharge Discharge Address: [address] [place] [address] Discharge Plan Discharge Items Patient Disposition: Home - Self-Care Reason For Visit: MAJOR DEPRESSIVE DISORDER, SINGLE EPISODE,SEVERE Discharge Diagnosis: MDD, recurrent, severe, without psychosis; generalized anxiety disorder. Condition on Discharge: Good Activity: Per Instructions section Non-emergency contact: Primary Care Provider, Psychiatrist and Therapist Call non-emergency contact if: you have any medication questions and your symptoms worsen Follow-up/Referrals: [facility] [Primary Care Provider] - Diet: Regular Addtl Attending Provider Instructions: SPECIAL CARE INSTRUCTIONS: 1. Follow through with your scheduled aftercare appointments. If unable to keep an appointment, please call to reschedule. 2. Take your medication only as prescribed. Medication should not be changed or stopped without the approval of your doctor. In the event of worsening symptoms or concerns about side effects, contact your doctor immediately. 3. Utilize new healthy coping skills, anger management skills, and stress management skills learned during your hospitalization. Journal feelings and process them with a support person. Identify stressors or situations that may result in relapse, deterioration or inappropriate behaviors and develop a plan to deal with those issues. 4. If your coping skills are ineffective and you are in crisis, contact your outpatient providers for direction. If unable to reach your providers, please call the [facility] CRISIS LINE AT , go to the [facility] walk-in center at [address], [address], [place], or go to the closest Emergency Room. 5. Avoid alcohol and un-prescribed drugs. 6. You have been provided with the Mental Health Advance Directives Pamphlet for your review. AFTERCARE APPOINTMENTS: * Please call your insurance company prior to your scheduled appointment to confirm your aftercare providers are covered. Take your insurance information to your appointments. WHO TO CALL AND WHEN: Medical Emergencies: For questions or emergencies related to your hospital stay, please contact the Inpatient Behavioral Health Unit at [phone]. A chief executive or managing director is on-call 27/03 for the Behavioral Health Unit for emergencies At any time you feel your situation is an emergency, you may also call 911 immediately. Pending Studies at Discharge: No Stand-Alone Forms: My [facility], Smoking Cessation, Suicide Prevention Resources Medications and DC Order Prescriptions: New escitalopram oxalate 10 mg Tablet 10 mg PO QAM Qty: 30 RF: 0 buspirone 10 mg tablet 10 mg PO TID Qty: 90 RF: 0 hydroxyzine HCl 50 mg tablet 50 mg PO HS PRN (Reason: sleep) Qty: 30 RF: 0 escitalopram oxalate 10 mg tablet 10 mg PO DAILY Qty: 30 RF: 0 Continued fluticasone propionate 50 mcg/actuation [place],Suspension 1 spray INTRANASAL DAILY RF: 0 Discharge Orders: Discharge Order (Routine); Ordered 07/02/20 Ordered By: Maureen Licona Admission Data Admit Date/Time: 06/27/20 22:21 Attending Provider: Maureen Licona Admit Provider: Mathew Vail Primary Care Provider: [facility] Other Interventions: Discharge Summary Assessment (RN) Last Done: 07/02/20 10:39 PSY Interdisciplinary Discharge Planning Last Done: 07/02/20 10:06 Coding Level of Care Code 43684 D/C day mgmt > 30 min Diagnoses Suicide attempt [id number] Depression F32.9 Depression Type: unspecified Generalized anxiety disorder F41.1
[2020-07-02] MEDS: ESCITALOPRAM OXALATE 10 MG TAB PO SCH (09:05)
[2020-07-02] MEDS: busPIRone 5 MG TAB PO SCH (09:05)
[2020-07-02] MEDS: FLUTICASONE PROPIONATE NA SPR 16 GM BTL SCH (09:07)
[2020-07-02 10:08] VITALS: BP 138/78; PULSE 95
== END 2020-07-02 10:58 | disposition home or self-care (01) | DRG 885 ==
LOC: ED 19:52 → SUATTDRO 22:21 → 3S 22:21